=== PATIENT | male | born 1965 | race Caucasian/White ===

== ENCOUNTER 2024-10-20 06:44 | Observation (INO) | payer OTHER ==
--- NOTE | 2024-10-20 07:06 | ED ---
Chest Pain HPI - General Chief Complaint: Chest Pain Stated Complaint: Chest Pain Time Seen by Provider: 10/20/24 06:46 Source: patient, EMS, RN notes reviewed Mode of arrival: EMS Limitations: no limitations - History of Present Illness Initial Comments: 59-year-old male presents emergency department via EMS from [facility] with chief complaint of chest pain over the last several days. Patient states he has had on and off symptoms when he gets very anxious he feels his heart racing he has some discomfort. He has no prior cardiac disease other than prior heart murmur which was found on echo and was told nothing concerning. Patient denies any shortness of breath denies any history of hypertension hyperlipidemia. Patient states that he does have a history of benzodiazepine use/abuse and this is why he has been at [facility] for 8 days. - Related Data Allergies Allergy/AdvReac Type Severity Reaction Status Date / Time No Known Allergies Allergy Verified 10/20/24 06:50 Review of Systems ROS Statement: Those systems with pertinent positive or pertinent negative responses have been documented in the HPI. ROS Other: All systems not noted in ROS Statement are negative. EKG Findings - EKG Comments: EKG Findings:: EKG performed at 6: 46 sinus rhythm rate of 79 OH 154 QRS 110 QT/QTc 370/404 - EKG Results: EKG: interpreted by ZINA Past Medical History Additional Past Medical History / Comment(s): Heart murmur History of Any Multi-Drug Resistant Organisms: None Reported Past Surgical History: No Surgical Hx Reported Past Psychological History: Anxiety, Depression Smoking Status: Current every day smoker Past Alcohol Use History: None Reported Past Drug Use History: Prescription Drug Abuse General Exam Limitations: no limitations General appearance: alert, in no apparent distress Head exam: Present: atraumatic, normocephalic, normal inspection Eye exam: Present: normal appearance, PERRL, EOMI. Absent: scleral icterus, conjunctival injection, periorbital swelling ENT exam: Present: normal exam, normal oropharynx, mucous membranes moist Neck exam: Present: normal inspection, full ROM. Absent: tenderness, meningismus, lymphadenopathy Respiratory exam: Present: normal lung sounds bilaterally. Absent: respiratory distress, wheezes, rales, rhonchi, stridor Cardiovascular Exam: Present: regular rate, normal rhythm, normal heart sounds. Absent: systolic murmur, diastolic murmur, rubs, gallop, clicks GI/Abdominal exam: Present: soft, normal bowel sounds. Absent: distended, tenderness, guarding, rebound, rigid Course Vital Signs 10/20/24 10/20/24 06:46 07:54 Temperature 98.6 F Pulse Rate 79 91 Respiratory 16 18 Rate Blood Pressure 113/79 134/91 O2 Sat by Pulse 98 98 Oximetry Chest Pain MDM - MDM Was pt. sent in by a medical professional or institution (, PA, SALES TRAINER, urgent care, hospital, or half-way...) When possible be specific @ -[facility] Did you speak to anyone other than the patient for history (EMS, parent, family, police, friend...)? What history was obtained from this source @ -[No] Did you review nursing and triage notes (agree or disagree)? Why? @ -[I reviewed and agree with nursing and triage notes] Were old charts reviewed (outside hosp., previous admission, EMS record, old EKG, old radiological studies, urgent care reports/EKG's, half-way records)? Report findings @ -[No old charts were reviewed] Differential Diagnosis (chest pain, altered mental status, abdominal pain women, abdominal pain men, vaginal bleeding, weakness, fever, dyspnea, syncope, headache, dizziness, GI bleed, back pain, seizure, CVA, palpatations, mental health, musculoskeletal)? @ -Differential Chest Pain: Stable Angina, Unstable Angina, STEMI, NSTEMI Aortic Dissection, Pneumothorax, Musculoskeletal, Esophageal Spasm GERD, Cholecystitis, Pancreatitis, Zoster, this is not meant to be an all-inclusive list. EKG interpreted by me (3pts min.). @ -[As above] X-rays interpreted by me (1pt min.). @ -Chest x-ray shows no acute cardiopulmonary process CT interpreted by me (1pt min.). @ -[None done] U/S interpreted by me (1pt. min.). @ -[None done] What testing was considered but not performed or refused? (CT, X-rays, U/S, la bs)? Why? @ -[None] What meds were considered but not given or refused? Why? @ -[None] Did you discuss the management of the patient with other professionals (professionals i.e. , VIKTOR, SALES TRAINER, lab, RT, psych nurse, social service agency director, a r specialist, teacher, chief supply chain officer, therapeutic case manager)? Give summary @ -[No] Was smoking cessation discussed for >3mins.? @ -[No] Was critical care preformed (if so, how long)? @ -[No] Were there social determinants of health that impacted care today? How? (Homelessness, low income, unemployed, alcoholism, drug addiction, transportation, low edu. Level, literacy, decrease access to med. care, group home, rehab)? @ -[No] Was there de-escalation of care discussed even if they declined (Discuss DNR or withdrawal of care, Hospice)? DNR status @ -[No] What co-morbidities impacted this encounter? (DM, HTN, Smoking, COPD, CAD, Cancer, CVA, ARF, Chemo, Hep., AIDS, mental health diagnosis, sleep apnea, morbid obesity)? @ -[None] Was patient admitted / discharged? Hospital course, mention meds given and route, prescriptions, significant lab abnormalities, going to OR and other pertinent info. @ -Admitted patient presented for left chest pain from [facility]. Patient did have relief with nitro given by EMS. Patient be held for cardiology evaluation. Undiagnosed new problem with uncertain prognosis? @ -[No] Drug Therapy requiring intensive monitoring for toxicity (Heparin, Nitro, Insulin, Cardizem)? @ -[No] Were any procedures done? @ -[No] Diagnosis/symptom? @ -Chest pain Acute, or Chronic, or Acute on Chronic? @ -Acute Uncomplicated (without systemic symptoms) or Complicated (systemic symptoms)? @ complicated Side effects of treatment? @ -[No] Exacerbation, Progression, or Severe Exacerbation? @ -[No] Poses a threat to life or bodily function? How? (Chest pain, [place], IA, pneumonia, PE, COPD, DKA, ARF, appy, cholecystitis, CVA, Diverticulitis, Homicidal, Suicidal, threat to staff... and all critical care pts) @ -Yes possible underlying ACS risk for cardiac function Disposition Clinical Impression: Chest pain Disposition: ADMITTED IP TO THIS [facility] Condition: Fair Referrals: None,Stated [Primary Care Provider] - 1-2 days Time of Disposition: 08:06
[2024-10-20 07:18] LABS: Basophils % (A) 1 %; Eosinophils # (A) 0.4 k/uL (0-0.7); Eosinophils % (A) 5 %; HGB 12.8 gm/dL (13.0-17.5); Lymphocytes # (A) 0.6 k/uL (1.0-4.8); Lymphocytes % (A) 7 %; MCH 30.8 pg (25.0-35.0); MCHC 34.7 g/dL (31.0-37.0); MCV 88.9 fL (80.0-100.0); Mean Platelet Volume 6.9; Monocytes # (A) 0.5 k/uL (0-1.0); Monocytes % (A) 6 %; Neutrophils # (A) 6.5 k/uL (1.3-7.7); Neutrophils % (A) 81 %; Platelet Count 231 k/uL (150-450); RBC 4.16 m/uL (4.30-5.90); RDW 12.7 % (11.5-15.5)
[2024-10-20 07:31] LABS: ALT 14 U/L (4-49); AST 20 U/L (17-59); African American GFR (CKD) >90 (>60 ml/min/1.73 sqM); Albumin 3.9 g/dL (3.5-5.0); Alkaline Phosphatase 81 U/L (38-126); Anion Gap 8 mmol/L; Blood Urea Nitrogen 17 mg/dL (9-20); Calcium 9.2 mg/dL (8.4-10.2); Carbon Dioxide 26 mmol/L (22-30); Chloride 105 mmol/L (98-107); Glucose 95 mg/dL (74-99); Magnesium 2.1 mg/dL (1.6-2.3); Non-African American GFR(CKD) >90 (>60 ml/min/1.73 sqM); Partial Thromboplastin Time 25.7 sec (22.0-30.0); Prothrombin Time 10.8 sec (10.0-12.5); Sodium 139 mmol/L (137-145); Total Bilirubin 0.3 mg/dL (0.2-1.3); Total Protein 6.4 g/dL (6.3-8.2)
--- NOTE | 2024-10-20 07:47 | XR ---
EXAMINATION TYPE: XR chest 2V DATE OF EXAM: 10/20/2024 7:43 AM COMPARISON: None CLINICAL INDICATION: Male, 59 years old with history of Chest Pain; TECHNIQUE: XR chest 2V Frontal and lateral views of the chest. FINDINGS: Lungs/Pleura: There is no evidence of pleural effusion, focal consolidation, or pneumothorax. Pulmonary vascularity: Unremarkable. Heart/mediastinum: Cardiomediastinal silhouette is unremarkable. Musculoskeletal: No acute osseous pathology. IMPRESSION: No acute cardiopulmonary disease/process. [facility], , 10/20/2024 7:45 AM
[2024-10-20] MEDS ORDERED: NITROGLYCERIN SL TABS 0.4 MG TAB SUBLINGUAL PRN (08:06)
[2024-10-20] MEDS: NICOTINE 14MG/24HR PATCH TRANSDERM STA (08:11)
--- NOTE | 2024-10-20 11:19 | P.CRDCN ---
History of Present Illness Consult date: 10/20/24 History of present illness: History of Present Illness: The patient is a 59-year-old male who was transferred from [place] where he was admitted recently for benzodiazepine addiction. He has noted palpitations over the last few days, not associated with any other symptoms. He denies any chest discomfort, dyspnea, dizziness or syncope. He has no peripheral edema. He denies any PND, orthopnea or prior history of cardiac arrhythmia. He was told that he had a heart murmur. He has no history of hypertension, hyperlipidemia or diabetes. He smokes about a pack a day. In the emergency room he was in sinus mechanism. Medications: Remeron, calcium, Rexulti Review of Systems: Respiratory: No history of asthma, bronchitis or recent cough. GI: No nausea or vomiting . No history of peptic ulcer disease. No recent GI bleed. : No hematuria or dysuria. Nervous System: No stroke or seizure. Physical Examination: 59-year-old male, alert oriented no apparent distress,Blood pressure 134/90, Heart rate 90 Head: Normocephalic. Eyes: Sclerae nonicteric. Neck: Good carotid upstroke, no bruit, no jugular venous distention. Lungs: Clear to auscultation. Heart: Regular rate and rhythm, S1-S2, no S3, no rub. Holosystolic murmur at the apex. Abdomen: Soft nontender, positive bowel sounds no organomegaly. Extremities: No edema, intact distal pulses. Labs: Hemoglobin 12.8, potassium 4.0, BUN 17, creatinine 0.69, troponin less than 0.012. Chest x-ray with no acute infiltrate EKG: Sinus mechanism rate of 79 with normal axis and intervals Impression: 1. Palpitations most likely related to the benzodiazepine withdrawal 2. Chronic tobacco use 3. Prior history of benzodiazepine addiction Plan: 1. No evidence to suggest malignant arrhythmia 2. Obtain an echocardiogram with Doppler 3. Continue telemetry 4. If there is no evidence of significant abnormalities on the echo and he continues to be in sinus mechanism, no further cardiac workup will be needed 5. Thank you for this consult we will follow with you Past Medical History Additional Past Medical History / Comment(s): Heart murmur History of Any Multi-Drug Resistant Organisms: None Reported Past Surgical History: No Surgical Hx Reported Past Psychological History: Anxiety, Depression Smoking Status: Current every day smoker Past Alcohol Use History: None Reported Past Drug Use History: Prescription Drug Abuse Medications and Allergies Home Medications Medication Instructions Recorded Confirmed Type Acetaminophen [Tylenol] 650 mg PO QID PRN 10/20/24 10/20/24 History Brexpiprazole [Rexulti] 4 mg PO HS@2100 10/20/24 10/20/24 History Calcium Phos/D3/Magnesium/Zinc 1 tab PO TID 10/20/24 10/20/24 History [Zcbomqr-Xnw-Ccwg-Vitamin D3] Chlorpheniramine Maleate 4 mg PO Q4H PRN 10/20/24 10/20/24 History [Chlor-Trimeton] Ibuprofen [Motrin Ib] 600 mg PO Q6H PRN 10/20/24 10/20/24 History Loperamide [Imodium] 4 mg PO QID PRN 10/20/24 10/20/24 History Melatonin 10 mg PO HS@2130 10/20/24 10/20/24 History Mirtazapine [Remeron] 45 mg PO HS@2100 10/20/24 10/20/24 History Multivitamins, Thera [Multivitamin 1 tab PO DAILY 10/20/24 10/20/24 History (formulary)] Mylanta 30 ml PO Q4H PRN 10/20/24 10/20/24 History Nicotine 21Mg/24Hr Patch [Habitrol] 1 patch TRANSDERM DAILY@0600 10/20/24 10/20/24 History Thiamine [Vitamin B-1] 100 mg PO DAILY 10/20/24 10/20/24 History busPIRone HCl [Buspar] 10 mg PO BID@0600,1800 10/20/24 10/20/24 History cloNIDine HCL [Catapres] 0.1 - 0.3 mg PO Q4H PRN 10/20/24 10/20/24 History ondansetron HCL [Zofran] 8 mg PO Q6H PRN 10/20/24 10/20/24 History Allergies Allergy/AdvReac Type Severity Reaction Status Date / Time No Known Allergies Allergy Verified 10/20/24 10:30 Physical Exam Vitals: Vital Signs Temp Pulse Resp BP Pulse Ox 10/20/24 07:54 91 18 134/91 98 10/20/24 06:46 98.6 F 79 16 113/79 98 Intake and Output 10/19/24 10/20/24 10/20/24 22:59 06:59 14:59 Other: Weight 83.915 kg Results 10/20/24 06:48 10/20/24 06:48 Cardiac Enzymes 10/20/24 10/20/24 10/20/24 Range/Units 06:48 06:48 08:26 AST 20 (17-59) U/L Troponin I <0.012 <0.012 (0.000-0.034) ng/mL Coagulation 10/20/24 Range/Units 06:48 PT 10.8 (10.0-12.5) sec APTT 25.7 (22.0-30.0) sec CBC 10/20/24 Range/Units 06:48 WBC 8.0 (3.8-10.6) k/uL RBC 4.16 L (4.30-5.90) m/uL Hgb 12.8 L (13.0-17.5) gm/dL Hct 37.0 L (39.0-53.0) % Plt Count 231 (150-450) k/uL Comprehensive Metabolic Panel 10/20/24 Range/Units 06:48 Sodium 139 (137-145) mmol/L Potassium 4.0 (3.5-5.1) mmol/L Chloride 105 (98-107) mmol/L Carbon Dioxide 26 (22-30) mmol/L BUN 17 (9-20) mg/dL Creatinine 0.69 (0.66-1.25) mg/dL Glucose 95 (74-99) mg/dL Calcium 9.2 (8.4-10.2) mg/dL AST 20 (17-59) U/L ALT 14 (4-49) U/L Alkaline Phosphatase 81 (38-126) U/L Total Protein 6.4 (6.3-8.2) g/dL Albumin 3.9 (3.5-5.0) g/dL Current Medications Generic Name Dose Route Start Last Admin Trade Name Freq PRN Reason Stop Dose Admin Aspirin 325 mg 10/21/24 09:00 Aspirin 325 Mg Tab PO DAILY LING Nitroglycerin 0.4 mg 10/20/24 08:06 Nitroglycerin Sl Tabs 0.4 Mg Tab SUBLINGUAL Q5M PRN Chest Pain Intake and Output 10/19/24 10/20/24 10/20/24 22:59 06:59 14:59 Other: Weight 83.915 kg 10/20/24 06:48 10/20/24 06:48
[2024-10-20] MEDS: busPIRone HCl 10 MG TAB PO STA (15:06)
[2024-10-20] MEDS ORDERED: LORazepam 2 MG/ML INJ IV PRN (15:40)
[2024-10-20] MEDS ORDERED: IBUPROFEN 600 MG TAB PO PRN (17:46)
[2024-10-20] MEDS ORDERED: ACETAMINOPHEN TAB 325 MG TAB PO PRN (17:46)
[2024-10-20] MEDS ORDERED: ONDANSETRON ODT 8 MG TAB.RAPDIS PO PRN (17:46)
[2024-10-20] MEDS ORDERED: LOPERAMIDE 2 MG CAP PO PRN (17:46)
[2024-10-20] MEDS: diphenhydrAMINE 25 MG CAP PO PRN (18:29)
[2024-10-20] MEDS: MIRTAZAPINE 45 MG TABLET PO SCH (19:53)
[2024-10-20] MEDS: MELATONIN 5 MG TABLET PO SCH (19:53)
[2024-10-20] MEDS: Brexpiprazole [Rexulti] 4 MG Tablet PO SCH (19:54)
[2024-10-20] MEDS ORDERED: NON FORMULARY DRUG (Calcium Phos/D3/Magnesium/Zinc [Calcium-Mag-Zinc-Vitamin D3] 1 EACH Ta PO SCH (22:00)
[2024-10-21] MEDS: busPIRone HCl 10 MG TAB PO SCH (06:10)
[2024-10-21] MEDS: NICOTINE 21MG/24HR PATCH TRANSDERM SCH (06:10)
--- NOTE | 2024-10-21 06:10 | HP ---
HISTORY AND PHYSICAL HISTORY OF PRESENT ILLNESS: Al Carver is a 59-year-old white male, came to the emergency room from [place] with some chest tightness and pain. Cardiology has seen him. His chest pain could be from benzo withdrawals. He usually smoke a pack a day. Denies any chest discomfort, dizziness, syncope, or nausea. PAST MEDICAL HISTORY: Twenty years of smoking a pack a day, secondary smoking as a kid. REVIEW OF SYSTEMS: Otherwise negative twelve view. PHYSICAL EXAMINATION: VITAL SIGNS: Stable. Afebrile. He is up walking around his room, in no acute distress. CARDIOVASCULAR: S1, S2. LUNGS: Clear. GI: Soft. HEMATOLOGY: Negative [place]. PSYCH: Fair mood and affect. ABDOMEN: Soft, palpitations. Atypical chest pain possibly from benzo withdrawal, chronic nicotine addiction. Cardiology cleared him. Did check an echo, no malignant arrhythmias. If no further trouble, he will be sent home in stable condition tomorrow. MMODL / IJN: [id number] /
--- NOTE | 2024-10-21 06:57 | CA ---
Transthoracic Echo Report Name: Al Carver Age: 59 Gender: M : 1965 Exam Date: 10/20/2024 16:07 Exam Location: [facility] Ht (in): 69 Wt (lb): 185 Ordering Physician: Donell Lugo Attending/Referring Phys: [id number], Brittney Jet Wiper Kristen Gong RDCS Procedure CPT: Indications: Chest Pain Cardiac Hx: Technical Quality: Good Contrast 1: Total Dose (mL): Contrast 2: Total Dose (mL): MEASUREMENTS (Male / Female) Normal Values 2D ECHO LV Diastolic Diameter PLAX 4.6 cm 4.2 - 5.9 / 3.9 - 5.3 cm LV Systolic Diameter PLAX 3.3 cm IVS Diastolic Thickness 0.9 cm 0.6 - 1.0 / 0.6 - 0.9 cm LVPW Diastolic Thickness 1.0 cm 0.6 - 1.0 / 0.6 - 0.9 cm LV Relative Wall Thickness 0.4 LVOT Diameter 2.5 cm LV Diastolic Volume MOD BP 145.7 cm??? 67 - 155 / 56 - 104 cm??? LV Systolic Volume MOD BP 59.5 cm??? 22 - 58 / 19 - 49 cm??? LV Ejection Fraction MOD BP 59.2 % >= 55 % LV Cardiac Index MOD BP 3301.7 cm???/min???m??? LV Diastolic Volume MOD 4C 154.8 cm??? LV Systolic Volume MOD 4C 62.1 cm??? LV Ejection Fraction MOD 4C 59.9 % LV Cardiac Index MOD 4C 3549.9 cm???/min???m??? LV Diastolic Length 4C 9.4 cm LV Systolic Length 4C 7.8 cm LV Diastolic Volume MOD 2C 130.1 cm??? LV Systolic Volume MOD 2C 55.1 cm??? LV Ejection Fraction MOD 2C 57.7 % LV Cardiac Index MOD 2C 2873.2 cm???/min???m??? LV Diastolic Length 2C 8.8 cm LV Systolic Length 2C 7.4 cm LA Volume 51.8 cm??? 18 - 58 / 22 - 52 cm??? LA Volume Index 25.4 cm???/m??? 16 - 28 cm???/m??? DOPPLER AV Peak Velocity 158.0 cm/s AV Peak Gradient 10.0 mmHg AV Mean Velocity 110.9 cm/s AV Mean Gradient 5.4 mmHg AV Velocity Time Integral 31.4 cm LVOT Peak Velocity 139.3 cm/s LVOT Peak Gradient 7.8 mmHg LVOT Velocity Time Integral 26.3 cm LVOT Stroke Volume 134.0 cm??? LVOT Stroke Volume Index 67.1 ml/m??? LVOT Cardiac Index 5132.7 cm???/min???m??? AV Area Cont Eq vti 4.3 cm??? AV Area Cont Eq pk 4.5 cm??? MV Area PHT 2.8 cm??? Mitral E Point Velocity 68.8 cm/s Mitral A Point Velocity 63.8 cm/s Mitral E to A Ratio 1.1 MV Deceleration Time 266.4 ms PV Peak Velocity 76.1 cm/s PV Peak Gradient 2.3 mmHg FINDINGS Left Ventricle Left ventricular ejection fraction is estimated at 55 to 60 %. Mildly increased left ventricular systolic volume. Left ventricular wall thickness normal. No obvious regional wall motion abnormalities. Right Ventricle Normal right ventricular size and function. Unable to estimate the right ventricular systolic pressure. Right Atrium Normal right atrial size. Left Atrium Normal left atrial size. Mitral Valve Structurally normal mitral valve. No evidence for mitral valve prolapse. No mitral stenosis. mild mitral regurgitation. Aortic Valve Trileaflet aortic valve. No aortic valve stenosis, mild regurgitation. Tricuspid Valve Structurally normal tricuspid valve. No tricuspid stenosis. Trace tricuspid regurgitation. Pulmonic Valve Pulmonic valve not well visualized. No pulmonic stenosis. No pulmonic regurgitation. Pericardium No pericardial effusion. Aorta Aortic annulus normal. CONCLUSIONS 1. Normal left ventricular size and systolic function 2. Mild mitral and aortic regurgitation Previewed by: Dr. Aleshia Gillis MD (Electronically Signed) Final Date: 21 October 2024 06:56
[2024-10-21 07:45] VITALS: BP 106/68; PULSE 80; RESP 17; TEMP 98.1
[2024-10-21] MEDS: THIAMINE 100 MG TAB PO SCH (08:54)
[2024-10-21] MEDS: MULTIVITAMINS, THERA 1 EACH TAB PO SCH (08:54)
[2024-10-21] MEDS ORDERED: ASPIRIN 325 MG TAB PO SCH (09:00)
[2024-10-21 09:23] LABS: Chol/HDL Ratio 3.71 Ratio; LDL Cholesterol,Calculated 118.1 mg/dL (0.0-131.0)
--- NOTE | 2024-10-21 09:59 | P.PN ---
Subjective HISTORY OF PRESENT ILLNESS: The patient is a 59-year-old male who was transferred from [place] where he was admitted recently for benzodiazepine addiction. He has noted palpitations over the last few days, not associated with any other symptoms. He denies any chest discomfort, dyspnea, dizziness or syncope. He has no peripheral edema. He denies any PND, orthopnea or prior history of cardiac arrhythmia. He was told that he had a heart murmur. He has no history of hypertension, hyperlipidemia or diabetes. He smokes about a pack a day. In the emergency room he was in sinus mechanism. Medications: Remeron, calcium, Rexulti 10/21/2023 Patient examined this morning at the bedside. Patient currently denies chest pain or pressure. He denies shortness of breath. He denies any palpitations. He does report he is having significant anxiety this morning and is pacing in his room at the time of examination. Telemetry Veals sinus mechanism. Echocardiogram completed revealing ejection fraction 55 to 60%, trace TR, mild MR PHYSICAL EXAM: VITAL SIGNS: Reviewed. GENERAL: Well-developed in no acute distress. NECK: Supple. No JVD or thyromegaly LUNGS: Respirations even and unlabored. Lungs essentially clear to auscultation bilaterally. HEART: Regular rate and rhythm. S1 and S2 heard. EXTREMITIES: Normal range of motion. No clubbing or cyanosis. Peripheral pulses intact. No lower extremity edema ASSESSMENT: 1. Palpitations most likely related to the benzodiazepine withdrawal 2. Chronic tobacco use 3. Prior history of benzodiazepine addiction PLAN: 2D echo obtained and reviewed Patient is currently stable from a cardiac standpoint with no further inpatient recommendations Patient is stable for discharge back to [place] from a cardiology standpoint Nurse practitioner note has been reviewed by physician. Signing provider agrees with the documented findings, assessment, and plan of care documented by CLINICAL BIOSTATISTICS DIRECTOR as a scribe. Objective - Vital Signs Vital signs: Vital Signs Temp 98.1 F 10/21/24 07:00 Pulse 80 10/21/24 07:00 Resp 17 10/21/24 07:00 BP 106/68 10/21/24 07:00 Pulse Ox 96 10/21/24 07:00 FiO2 Intake & Output 10/20/24 10/21/24 10/21/24 18:59 06:59 18:59 Intake Total 221 118 Balance 221 118 Weight 83.915 kg Intake: Oral 221 118 Other: Voiding Method Toilet Urinal # Voids 2 - Labs CBC & Chem 7: 10/20/24 06:48 10/20/24 06:48
== END 2024-10-21 11:38 | disposition other institution (70) ==
LOC: EC 06:44 → 6NMEDSUR 08:03
PROVIDERS: ADMIT Family Medicine; ATTEND Family Medicine
DX: R07.89 Other chest pain (principal); F13.20 Sedative, hypnotic or anxiolytic dependence, uncomplicated; R00.2 Palpitations; F41.9 Anxiety disorder, unspecified; R01.1 Cardiac murmur, unspecified; F17.210 Nicotine dependence, cigarettes, uncomplicated; Z79.899 Other long term (current) drug therapy
CPT/HCPCS: 99285; 36415; 93005; 93306; 85379; 80061; 80053; 83735; 84484; 85025; 85610; 85730; 71046; G0378 ×2; S4990 ×2